=== PATIENT | female | born 1955 | race Caucasian/White ===

== ENCOUNTER 2017-10-28 11:38 | Inpatient (IN) ==
[2017-10-28 12:14] LABS: Basophils % 0.7 %; Eosinophils % 0.7 %; Hemoglobin 11.9 g/dL (11.5-15.4); Immature Granulocytes % 0.7 % (0-4); Lymphocytes # 0.9 K/mcL (0.6-4.6); Lymphocytes % 29.3 %; Mean Corpuscular HGB Conc 32.2 g/dL (31.6-35.5); Mean Corpuscular Hemoglobin 27.7 pg (28.0-33.3); Mean Corpuscular Volume 86.2 fL (83.0-100.0); Mean Platelet Volume 10.7 fL (9.4-12.4); Monocytes # 0.3 K/mcL (0.0-1.3); Monocytes % 9.4 %; Neutrophils # 1.8 K/mcL (1.6-8.9); Platelet Count 216 K/mcL (140-400); Red Blood Count 4.29 M/mcL (3.82-4.97); Segmented Neutrophils % 59.2 %
[2017-10-28 12:29] LABS: BUN/Creatinine Ratio 13 (6-26); Blood Urea Nitrogen 12 mg/dL (8-23); Calcium 9.2 mg/dL (8.6-10.3); Carbon Dioxide 25 mEq/L (23-29); Chloride 101 mEq/L (98-107); Glucose 258 mg/dL (70-105); Osmolality,Calculated 291 (280-300); Potassium 3.9 mEq/L (3.5-5.1); Sodium 136 mEq/L (136-145); eGFR For African Americans > 60 (> 60); eGFR For Non-African Americans > 60 (> 60)
[2017-10-28] MEDS ORDERED: Ipratropium/Albuterol Neb 3 ML IH ONE (12:29)
--- NOTE | 2017-10-28 13:36 | Emergency Department Note ---
Disposition Clinical Impression: Dyspnea Qualifiers: Dyspnea type: dyspnea on exertion Qualified Code(s): R06.09 - Other forms of dyspnea Disposition: Admitted As Inpatient Condition: Good Time of Disposition: 16:02 SOB [facility] - General Chief Complaint: ED Shortness of Breath/Dyspnea Stated Complaint: difficulty in breathing Time Seen by Provider: 10/28/17 11:41 Source: patient Limitations: no limitations Nursing Notes Reviewed: Yes Vital Signs Reviewed: Yes - History of Present Illness 62-year-old female presents emergency Department with concerns of difficulty in breathing. Patient states she becomes significantly dyspneic with minimal exertion. Patient states symptoms have been worsening over the past week. Denies fever, chest pain, syncope however she does become nauseated and lightheaded with her dyspnea. Patient states her symptoms are resolved within minutes of sitting still. Patient has a history of cardiac disease with multiple stents in place. - Related Data Home Medications Medication Instructions Recorded Confirmed Aspirin 11/01/16 Furosemide 11/01/16 Gabapentin 11/01/16 Glimepiride 11/01/16 Lisinopril 11/01/16 Metformin 11/01/16 Naproxen 11/01/16 Potassium 11/01/16 11/01/16 Tylenol 11/01/16 Previous Rx's Medication Instructions Recorded Amoxicillin 875 mg PO BID #14 tablet 11/01/16 Allergies Allergy/AdvReac Type Severity Reaction Status Date / Time No Known Allergies Allergy Verified 10/28/17 09:47 All systems ED: reviewed and negative except as stated. Review of Systems: As Per [facility] Past Medical History - Past Medical History Attestation: Yes The following information was validated with the patient. Source: patient Medical history: Reports: CVA, diabetes, hypertension Psychiatric history: Reports: no psych history - Social History Smoking Status: Never smoker Smokeless Tobacco Status: No Alcohol use: Reports: none Drug use: Reports: none Physical Exam General: Alert and in no acute distress Skin: Warm, dry, intact Head: Normocephalic and atraumatic Neck: Supple, trachea midline and no tenderness Cardiovascular: RRR, no murmur, normal perfusion Respiratory: She has wheezing present on bilateral posterior lung cabezas. She becomes dyspneic with minimal exertion. Musculoskeletal: Normal strength, no tenderness, swelling or deformity GI: Soft, nontender, nondistended. Bowel sounds present Neuro: A&O to person, place, time and situation. No focal deficits noted on exam Psychiatric: cooperative and appropriate mood and affect. - General Limitations: no limitations General appearance: alert, in no apparent distress Course Vital Signs Temperature 98.3 F 10/28/17 11:41 Pulse Rate 93 10/28/17 11:41 Respiratory Rate 14 10/28/17 11:41 Blood Pressure 129/101 10/28/17 11:41 O2 Sat by Pulse Oximetry 98 10/28/17 11:41 Temperature 98.1 F 10/28/17 18:29 Pulse Rate 89 10/28/17 18:29 Respiratory Rate 15 10/28/17 18:29 Blood Pressure 151/88 10/28/17 18:29 O2 Sat by Pulse Oximetry 95 10/28/17 18:29 Oxygen Delivery Oxygen Delivery Nasal Cannula Shortness of Breath/Dyspnea - [facility] Narrative Medical decision making narrative: Patient has elevated lactic acid level and his dyspnea with exertion. Initial troponin negative. CTA of the chest was negative for PE. Patient will be admitted for lactic acidosis and dyspnea. - Medical Records Medical records reviewed: Yes I reviewed the patient's medical records. - Lab Data Lab results reviewed: Yes I reviewed the patient's lab results. Result diagrams: 10/28/17 11:58 10/28/17 11:58 Lab Results 10/28/17 10/28/17 10/28/17 Range/Units 11:58 11:58 11:58 WBC 3.0 L (4.3-11.1) K/mcL RBC 4.29 (3.82-4.97) M/mcL Hgb 11.9 (11.5-15.4) g/dL Hct 37.0 (35.3-44.9) % MCV 86.2 (83.0-100.0) fL MCH 27.7 L (28.0-33.3) pg MCHC 32.2 (31.6-35.5) g/dL RDW 14.0 (11.5-14.5) % Plt Count 216 (140-400) K/mcL MPV 10.7 (9.4-12.4) fL Immature Gran % 0.7 (0-4) % Seg Neutrophils % 59.2 % Lymphocytes % 29.3 % Monocytes % 9.4 % Eosinophils % 0.7 % Basophils % 0.7 % Neutrophils # 1.8 (1.6-8.9) K/mcL Lymphocytes # 0.9 (0.6-4.6) K/mcL Monocytes # 0.3 (0.0-1.3) K/mcL Eosinophils # 0.0 (0.0-0.6) K/mcL Basophils # 0.0 (0.0-0.2) K/mcL D-Dimer (0-500) ng/mLFEU Sodium 136 (136-145) mEq/L Potassium 3.9 (3.5-5.1) mEq/L Chloride 101 (98-107) mEq/L Carbon Dioxide 25 (23-29) mEq/L BUN 12 (8-23) mg/dL Creatinine 0.89 (0.60-1.20) mg/dL Est GFR ( Amer) > 60 (> 60) Est GFR (Non-Af Amer) > 60 (> 60) BUN/Creatinine Ratio 13 (6-26) Glucose 258 H (70-105) mg/dL Calculated Osmolality 291 (280-300) Lactic Acid 3.0 H (0.5-2.2) mmol/L Calcium 9.2 (8.6-10.3) mg/dL Troponin I (< 0.04) ng/mL B-Natriuretic Peptide (Less than 100) pg/mL Urine Color (Yellow) Urine Clarity (Clear) Urine pH (5.0-8.0) pH Units Ur Specific [place] (1.010-1.025) Urine Protein (Neg-Trace) mg/dL Urine Glucose (UA) (Normal) mg/dL Urine Ketones (Negative) mg/dL Urine Blood (Negative) Urine Nitrite (Negative) Urine Bilirubin (Negative) Urine Urobilinogen (Normal) mg/dL Ur Leukocyte Esterase (Negative) Urine Microscopic RBC (0-3) per hpf Urine Microscopic WBC (0-3) per hpf Ur Squamous Epith Cells (None-Few) per lpf Urine Bacteria (None-Few) per hpf Hyaline Casts (None-Few) per lpf Ur Culture Indicated? (NO) 10/28/17 10/28/17 10/28/17 Range/Units 11:58 11:58 11:58 WBC (4.3-11.1) K/mcL RBC (3.82-4.97) M/mcL Hgb (11.5-15.4) g/dL Hct (35.3-44.9) % MCV (83.0-100.0) fL MCH (28.0-33.3) pg MCHC (31.6-35.5) g/dL RDW (11.5-14.5) % Plt Count (140-400) K/mcL MPV (9.4-12.4) fL Immature Gran % (0-4) % Seg Neutrophils % % Lymphocytes % % Monocytes % % Eosinophils % % Basophils % % Neutrophils # (1.6-8.9) K/mcL Lymphocytes # (0.6-4.6) K/mcL Monocytes # (0.0-1.3) K/mcL Eosinophils # (0.0-0.6) K/mcL Basophils # (0.0-0.2) K/mcL D-Dimer 599 H (0-500) ng/mLFEU Sodium (136-145) mEq/L Potassium (3.5-5.1) mEq/L Chloride (98-107) mEq/L Carbon Dioxide (23-29) mEq/L BUN (8-23) mg/dL Creatinine (0.60-1.20) mg/dL Est GFR ( Amer) (> 60) Est GFR (Non-Af Amer) (> 60) BUN/Creatinine Ratio (6-26) Glucose (70-105) mg/dL Calculated Osmolality (280-300) Lactic Acid (0.5-2.2) mmol/L Calcium (8.6-10.3) mg/dL Troponin I < 0.03 (< 0.04) ng/mL B-Natriuretic Peptide 31 (Less than 100) pg/mL Urine Color (Yellow) Urine Clarity (Clear) Urine pH (5.0-8.0) pH Units Ur Specific [place] (1.010-1.025) Urine Protein (Neg-Trace) mg/dL Urine Glucose (UA) (Normal) mg/dL Urine Ketones (Negative) mg/dL Urine Blood (Negative) Urine Nitrite (Negative) Urine Bilirubin (Negative) Urine Urobilinogen (Normal) mg/dL Ur Leukocyte Esterase (Negative) Urine Microscopic RBC (0-3) per hpf Urine Microscopic WBC (0-3) per hpf Ur Squamous Epith Cells (None-Few) per lpf Urine Bacteria (None-Few) per hpf Hyaline Casts (None-Few) per lpf Ur Culture Indicated? (NO) 10/28/17 10/28/17 10/28/17 Range/Units 13:38 16:17 19:42 WBC (4.3-11.1) K/mcL RBC (3.82-4.97) M/mcL Hgb (11.5-15.4) g/dL Hct (35.3-44.9) % MCV (83.0-100.0) fL MCH (28.0-33.3) pg MCHC (31.6-35.5) g/dL RDW (11.5-14.5) % Plt Count (140-400) K/mcL MPV (9.4-12.4) fL Immature Gran % (0-4) % Seg Neutrophils % % Lymphocytes % % Monocytes % % Eosinophils % % Basophils % % Neutrophils # (1.6-8.9) K/mcL Lymphocytes # (0.6-4.6) K/mcL Monocytes # (0.0-1.3) K/mcL Eosinophils # (0.0-0.6) K/mcL Basophils # (0.0-0.2) K/mcL D-Dimer (0-500) ng/mLFEU Sodium (136-145) mEq/L Potassium (3.5-5.1) mEq/L Chloride (98-107) mEq/L Carbon Dioxide (23-29) mEq/L BUN (8-23) mg/dL Creatinine (0.60-1.20) mg/dL Est GFR ( Amer) (> 60) Est GFR (Non-Af Amer) (> 60) BUN/Creatinine Ratio (6-26) Glucose (70-105) mg/dL Calculated Osmolality (280-300) Lactic Acid 3.1 H 3.3 H (0.5-2.2) mmol/L Calcium (8.6-10.3) mg/dL Troponin I (< 0.04) ng/mL B-Natriuretic Peptide (Less than 100) pg/mL Urine Color Yellow (Yellow) Urine Clarity Clear (Clear) Urine pH 6.0 (5.0-8.0) pH Units Ur Specific [place] > 1.030 H (1.010-1.025) Urine Protein Trace (Neg-Trace) mg/dL Urine Glucose (UA) >=1000 H (Normal) mg/dL Urine Ketones 40 H (Negative) mg/dL Urine Blood Negative (Negative) Urine Nitrite Negative (Negative) Urine Bilirubin Negative (Negative) Urine Urobilinogen Normal (Normal) mg/dL Ur Leukocyte Esterase Negative (Negative) Urine Microscopic RBC 0-3 (0-3) per hpf Urine Microscopic WBC 0-3 (0-3) per hpf Ur Squamous Epith Cells Many H (None-Few) per lpf Urine Bacteria None Seen (None-Few) per hpf Hyaline Casts None Seen (None-Few) per lpf Ur Culture Indicated? NO (NO) - Radiology Data Radiology results reviewed: Yes I reviewed the patient's radiology results. - EKG Data EKG attestation: Yes I reviewed and interpreted this EKG. EKG results narrative: ECG - interpreted by ED physician. Rate 87, normal sinus rhythm, no STEMI, [place], QT intervals, and QRS within normal limits
[2017-10-28] MEDS ORDERED: 0.9 % Sodium Chloride 1,000 ML IVC ONE ×3 (14:41→21:37)
[2017-10-28 16:32] LABS: Bilirubin,Urine Negative (Negative); Blood,Urine Negative (Negative); Clarity,Urine Clear (Clear); Color,Urine Yellow (Yellow); Glucose,Urine (UA) >=1000 mg/dL (Normal); Ketones,Urine 40 mg/dL (Negative); Leukocyte Esterase,Urine Negative (Negative); Nitrite,Urine Negative (Negative); Protein,Urine Trace mg/dL (Neg-Trace); Specific Gravity,Urine > 1.030 (1.010-1.025); Urobilinogen,Urine Normal (Normal)
[2017-10-28 16:33] LABS: Bacteria,Urine None Seen per hpf (None-Few); Hyaline Casts,Urine None Seen per lpf (None-Few); RBC,Urine 0-3 per hpf (0-3); Squamous Epithelial Cell,Urine Many per lpf (None-Few); WBC,Urine 0-3 per hpf (0-3)
--- NOTE | 2017-10-28 19:17 | Electrocardiograph Report ---
[address] [place], [place] [address] Test Date: 2017-10-28 Pat Name: Marisela Small Department: 104 Room: 3A42 Gender: F [employer]: : 1955 Requested By: Sampson Ortiz Order Number: [id number] Reading MD: Hui Abrams Measurements Intervals [place] Rate: 87 P: 61 WA: 185 QRS: -6 QRSD: 90 T: 19 QT: 371 QTc: 416 Interpretive Statements SINUS RHYTHM LOW QRS VOLTAGE IN PRECORDIAL LEADS Electronically Signed On 10-28-2017 19:16:37 EST by Hui Abrams
[2017-10-28] MEDS ORDERED: Naloxone 0.4 MG/ML INJ IVP PRN (20:04)
[2017-10-28] MEDS ORDERED: Acetaminophen 325 MG TABLET PO PRN (20:04)
[2017-10-28] MEDS: Azithromycin 500 MG in D5% in Water 250 ML IVPB SCH (22:18)
[2017-10-28] MEDS: Ipratropium/Albuterol Neb 3 ML IH SCH (22:19)
[2017-10-28] MEDS: *HR* HYDROcodone/Acet 5/325 mg TABLET PO PRN (22:20)
--- NOTE | 2017-10-28 22:24 | Internal Med History&Physical ---
Date of Encounter: 10/28/17 Time of Encounter: 18:00 Assessment and Plan (1) Bronchitis Current visit: Yes Status: Acute Acute bronchitis. Pt. states current sx are similar to her bronchitis dx one year ago. Pt. reports cough with sputum production, shortness of breath, wheezing, and dyspnea with minimal exertion which has worsened since Friday. Pt. denies hx of COPD or CHF. Also denies smoking hx. Blood cultures x2. Sputum culture. Supplemental O2 w/titration and SPO2 monitoring. Solumedrol 40 mg IVP Q8. DuoNebs Q6 scheduled. IVPB azithromycin 500 mg daily for infection coverage. Will adjust abx coverage based on culture results. Pt. and f/u labs to be monitored. Pt. discussed w/Dr. Gallegos who is in agreement w/plan of care. Pt. is high risk for further morbidity and infection based on current bronchitis , sepsis criteria, current SOB/dyspnea, and hx. Inpatient. (2) Sepsis Current visit: Yes Status: Acute Acute sepsis criteria w/WBC of 3.0, HR of 114, and suspected bronchitis dx. Initial lactic acid 3.0 on admission. Pt. given 0.9 NS bolus in ED to be followed by two 1L boluses, then 100 mL/HR. Blood cultures x2. Sputum culture. Timed lactic acid ordered. IVPB Azithromycin 500 mg daily for infection coverage. Will adjust abx coverage based on culture results. Pt. to be monitored closely for signs of increasing infection, respiratory, and/or cardiac distress. Qualifiers: Sepsis type: sepsis due to unspecified organism Qualified Code(s): A41.9 - Sepsis, unspecified organism (3) Dyspnea Current visit: Yes Status: Acute Acute SOB and dyspnea r/t current bronchitis. Supplemental O2 w/titration and SpO2 monitoring. DuoNebs Q6 scheduled. Solumedrol 40 mg IVP Q8. Can consider titrating steroid as sx resolve. Qualifiers: Dyspnea type: dyspnea on exertion Qualified Code(s): R06.09 - Other forms of dyspnea (4) Diarrhea Current visit: Yes Status: Acute Acute diarrhea for the past three days. Will consider and r/o infectious type d/ t previous abx use. C. difficile panel ordered. Monitor I&O. Qualifiers: Diarrhea type: unspecified type Qualified Code(s): R19.7 - Diarrhea, unspecified (5) Weakness Current visit: Yes Status: Acute Acute weakness r/t current SOB, dyspnea, and cough. Falls/safety precautions, up with assist, and bed rest w/bedside commode w/assist only. (6) Diabetes Current visit: Yes Status: Chronic Hx of chronic diabetes controlled by insulin and oral medications. Will hold oral medications and administer low-dose correction insulin sliding scale with hypoglycemic protocol. BG checks before meals and at bedtime. A1c in a.m. labs. Qualifiers: Diabetes mellitus type: type 2 Diabetes mellitus complication status: with unspecified complications Diabetes mellitus intermediate teacher insulin use: unspecified intermediate teacher insulin use status Qualified Code(s): E11.8 - Type 2 diabetes mellitus with unspecified complications (7) HTN (hypertension) Current visit: Yes Status: Chronic Hx of chronic HTN. Monitor patient vital signs. Continue patient's lisinopril. Qualifiers: Hypertension type: essential hypertension Qualified Code(s): I10 - Essential (primary) hypertension (8) HLD (hyperlipidemia) Current visit: Yes Status: Chronic Hx of chronic HLD. Lipid panel in a.m. labs. Pt. does not currently take statin. We will add Lipitor if lipid panel warrants. Qualifiers: Hyperlipidemia type: pure hypercholesterolemia Qualified Code(s): E78.00 - Pure hypercholesterolemia, unspecified; E78.0 - Pure hypercholesterolemia (9) DVT prophylaxis Current visit: Yes Status: Acute Heparin 5,000 units SQ Q8 for DVT prophylaxis. Monitor pt. for signs of bleeding. Internal Medicine - H&P: HPI Chief complaint: SOB/Dyspnea Admitted From: Emergency Dept Plans for Post Hospital Care: Home History of present illness: Ms. Small is a 62 year old female with medical hx of CVA in 1999, diabetes controlled by insulin, HTN and HLD presents for eating chief complaint of shortness of breath and dyspnea for the past week. Patient states she becomes significantly dyspneic with minimal exertion which is worsened over the past week. Reports she had bronchitis approximately one year ago and states symptoms are very similar with SOB, weakness, diarrhea, wheezing, and lightheadedness. Patient denies recent illness, fever, chills, vomiting, chest pain, palpitations, headache, changes in vision, unusual bleeding, abdominal pain, constipation, back pain, neck pain, numbness, tingling, pre-syncope, or syncope. Past Med Surg Social Fam HX - Past Medical History Source: patient, old records reviewed Medical history: CVA (In 1999 w/residual vision changes), diabetes (Controlled w /insulin), hypertension Psychiatric history: no psych history - Past Surgical History Surgical History: cholecystectomy - Social History Smoking Status: Never smoker Smokeless Tobacco Status: No Alcohol use: none Drug use: none Occupational status: employed Current living situation: Home Activity Level: Independent ambulation Recent Out of Country Travel Within the Last 8 Weeks: No Exposure or Possible Exposure to Illness During Travel: No - Family History Father Race: Family Member Ethnicity: Non- Living Status: Age at : 82 Cause of : CAD Hx Family Cardiac Disorders: Yes (CAD) Mother Race: Family Member Ethnicity: Non- Living Status: Age at : 72 Cause of : COPD Hx Family Respiratory Disorders: Yes (COPD) Brother Race: Family Member Ethnicity: Non- Living Status: Still Living Hx Family Medical Disorders: No Sister Race: Family Member Ethnicity: Non- Living Status: Age at : 50 Cause of : Metastatic cancer Hx Family Cancer: Yes (Metastatic) Daughter Race: Family Member Ethnicity: Non- Living Status: Age at : 42 Cause of : Cancer Hx Family Cancer: Yes Internal Medicine - H&P: Meds Amoxicillin 875 mg PO BID #14 tablet 11/01/16 [Rx] Aspirin 11/01/16 [History] Furosemide 11/01/16 [History] Gabapentin 11/01/16 [History] Glimepiride 11/01/16 [History] Lisinopril 11/01/16 [History] Metformin 11/01/16 [History] Naproxen 11/01/16 [History] Potassium 11/01/16 [History] Tylenol 11/01/16 [History] 3 Allergy/AdvReac Type Severity Reaction Status Date / Time No Known Allergies Allergy Verified 10/28/17 09:47 All Systems PM: A 10-system review of systems was performed and is negative for pertinent findings except as documented above in the HPI. - Constitutional Constitutional: as per HPI, weakness, no chills, no fever(s), no night sweats - EENT Eyes: no change in vision, no discharge, no pain, no photophobia Ears: no ear discharge, no ear pain, no tinnitus Nose, mouth and throat: no dysphagia, no nasal discharge, no neck pain, no sore throat - Breasts Breasts: as per HPI - Cardiovascular Cardiovascular ROS IM: as per HPI, dyspnea, dyspnea on exertion, lightheadedness , no chest pain, no diaphoresis, no palpitations, no syncope - Respiratory Respiratory: as per HPI, cough, dyspnea, dyspnea on exertion, wheezing, no excessive phlegm production - Gastrointestinal Gastrointestinal: as per HPI, diarrhea, nausea, no abdominal pain, no hematemesis, no hematochezia, no melena, no vomiting - Genitourinary Genitourinary: no change in urinary stream, no dysuria, no flank pain, no hematuria Menstruation: as per HPI - Musculoskeletal Musculoskeletal ROS IM: no numbness, no tingling - Integumentary Integumentary IM: no rash, no unusual bruising - Neurological Neurological ROS: as per HPI, dizziness, no confusion, no convulsions, no focal weakness, no numbness, no tingling, no tremor(s) - Psychiatric Psychiatric: as per HPI - Endocrine Endocrine IM: as per HPI - Hematologic/Lymphatic Hematologic/Lymphatic: no easy bruising - Allergic/Immunologic Allergic/Immunologic: as per HPI - Constitutional Vitals: Temp Pulse Resp BP Pulse Ox 98.1 F 89 15 151/88 95 10/28/17 18:29 10/28/17 18:29 10/28/17 18:29 10/28/17 18:29 10/28/17 18:29 General appearance: Present: cooperative, mild distress (Respiratory), A&O X 3, morbidly obese, pleasant, answers questions appropriately - Head Head exam: Present: atraumatic, normocephalic - Eye Eye exam: Present: PERRL, conjuntiva pink, sclera anicteric Pupils: Present: PERRL - ENT ENT exam: Present: normal exam - Neck Neck exam general surgery: Present: normal inspection, supple, trachea midline. Absent: lymphadenopathy - Respiratory Respiratory exam: Present: accessory muscle use, wheezes - Cardiovascular Cardiovascular exam: Present: +S1, +S2, tachycardia. Absent: diastolic murmur, gallop, rubs, systolic murmur - GI/Abdominal GI/Abdominal exam: Present: normal bowel sounds, soft, no peritoneal signs. Absent: distended, tenderness - Rectal Rectal exam: Present: deferred - Additional comments: exam deferred. - Extremities Exam Extremities exam: Present: warm, radial pulses palpable and symmetrical. Absent : calf tenderness, cyanotic, pedal edema - Back Exam Back exam: Present: normal inspection - Neurological Exam Neurological exam: Present: CN II-XII intact, oriented X3, no focal deficits. Absent: pronater drift, facial droop, speech deficit - Psychiatric Psychiatric exam: Present: anxious - Skin Skin exam: Present: dry, intact Internal Med - H&P Results - Labs CBC & Chem 7: 10/28/17 11:58 10/28/17 11:58 - EKG Data EKG shows normal: sinus rhythm - EKG Data Prior EKG available for review: no EKG comments: 10/28/17 22:30 EKG dated 10/28/17 sinus rhythm with low QRS voltage in precordial leads. - Diagnostic Studies Chest x-ray Additional comments: Impressions Chest X-Ray 10/28/17 11:49 IMPRESSION: Calcific atherosclerotic disease aorta. No acute disease. D/ / Lawrence Wright / Lawrence Wright Interpreting Provider: Lawrence Wright Other Images Additional comments: Impressions Chest CTA 10/28/17 14:33 IMPRESSION: Limited exam due to timing of the bolus and artifact No large central pulmonary artery filling defect is noted Minimal pleural fluid on the right with minimal bilateral dependent atelectasis. Hiatal hernia D/ / Rosas Hamlin / Rosas Hamlin Interpreting Provider: Rosas Hamlin
[2017-10-28] MEDS ORDERED: Dextrose Gel 15 GM/37.5 ML TUBE PO PRN ×2 (22:39)
[2017-10-28] MEDS ORDERED: *HR* Dextrose 50 % in Water (Syg) 50 ML SYRINGE IVP PRN (22:39)
[2017-10-28] MEDS ORDERED: D5% in Water 1,000 ML IVC PRN (22:39)
--- NOTE | 2017-10-28 23:05 | Event Note ---
Date of Encounter: 10/28/17 Time of Encounter: 23:00 Discussed with CURLY and agree with assessment and plan Will continue to treat acute bronchitis with IV azithromycin in addition to DuoNeb and Solu-Medrol. Sputum culture pending
[2017-10-29] MEDS: *HR* Heparin 5,000 UNIT/ML VIAL SQ SCH ×3 (00:50→15:39)
[2017-10-29] MEDS: MethylPREDNISolone 40 MG/ML VIAL IVP SCH ×3 (00:50→15:39)
[2017-10-29] MEDS ORDERED: Vancomycin 1,750 MG in D5% in Water 500 ML IVPB SCH (01:00)
[2017-10-29] MEDS ORDERED: Vancomycin 1,750 MG in D5% in Water 500 ML IVPB ONE (01:15)
[2017-10-29] MEDS ORDERED: Vancomycin 1,750 MG in D5% in Water 250 ML IVPB SCH (01:30)
[2017-10-29] MEDS: *HR* HYDROcodone/Acet 5/325 mg TABLET PO PRN (03:58)
[2017-10-29] MEDS: Ipratropium/Albuterol Neb 3 ML IH SCH ×4 (04:19→21:52)
[2017-10-29 06:03] LABS: Basophils % 0.2 %; Hematocrit 33.2 % (35.3-44.9); Hemoglobin 10.8 g/dL (11.5-15.4); Lymphocytes # 0.8 K/mcL (0.6-4.6); Lymphocytes % 19.8 %; Mean Corpuscular HGB Conc 32.5 g/dL (31.6-35.5); Mean Corpuscular Hemoglobin 27.6 pg (28.0-33.3); Mean Corpuscular Volume 84.7 fL (83.0-100.0); Monocytes # 0.2 K/mcL (0.0-1.3); Monocytes % 4.5 %; Neutrophils # 3.1 K/mcL (1.6-8.9); Platelet Count 224 K/mcL (140-400); Red Blood Count 3.92 M/mcL (3.82-4.97); Red Cell Distribution Width 14.1 % (11.5-14.5); Segmented Neutrophils % 74.5 %
[2017-10-29 06:20] LABS: Alanine Aminotransferase 28 Units/L (7-52); Albumin/Globulin Ratio 1.6 (1.1-2.2); Alkaline Phosphatase 76 Units/L (34-104); Aspartate Amino Transferase 18 Units/L (13-39); BUN/Creatinine Ratio 14 (6-26); Bilirubin,Total 0.3 mg/dL (0.3-1.0); Blood Urea Nitrogen 11 mg/dL (8-23); Calcium 8.8 mg/dL (8.6-10.3); Carbon Dioxide 21 mEq/L (23-29); Chloride 101 mEq/L (98-107); Chol/HDL Ratio 2.6 (0-4.9); Cholesterol 83 mg/dL (< 200); Globulin 2.5 g/dL (2.4-3.5); Glucose 382 mg/dL (70-105); HDL Cholesterol 32 mg/dL (40-59); LDL Cholesterol,Calculated 28 mg/dL (0-99); Magnesium 1.6 mg/dL (1.6-2.6); Osmolality,Calculated 291 (280-300); Sodium 133 mEq/L (136-145); Total Protein 6.5 g/dL (6.4-8.9); Triglycerides 114 mg/dL (< 150); eGFR For African Americans > 60 (> 60); eGFR For Non-African Americans > 60 (> 60)
[2017-10-29] MEDS: 0.9 % Sodium Chloride 1,000 ML IVC SCH ×2 (07:00→22:18)
[2017-10-29] MEDS ORDERED: Aminoglycoside Consult 1 EACH MC ONE (08:30)
[2017-10-29] MEDS: Insulin LISPRO 300 UNITS/3 ML VIAL SQ SCH ×3 (08:58→16:47)
--- NOTE | 2017-10-29 09:53 | Internal Med Progress Note ---
<Bennett Ochoa - Last Filed: 10/29/17 14:09> Date of Encounter: 10/29/17 Time of Encounter: 09:49 - Assessment and plan (1) Bronchitis Current Visit: Yes Status: Acute Assessment and plan: Awaiting blood and sputum cultures - Supplemental O2 as needed with monitoring - Solumedrol 40 mg IVP Q8 - Dunebs Q6 scheduled - IV Azithromycin 500 mg QD day 2. Will adjust coverage based on cultures. May qualify her for oxygen prior to discharge for undiagnosed COPD (2) Sepsis Current Visit: Yes Status: Acute Assessment and plan: Acute sepsis criteria w/WBC of 3.0, HR of 114, and suspected bronchitis dx. Initial lactic acid 3.5 on admission. This AM, WBC: 4.2 Lactic 2.5 - IV fluids -Blood and sputum cultures pending -IV azithromycin 500mg Qualifiers: Sepsis type: sepsis due to unspecified organism Qualified Code(s): A41.9 - Sepsis, unspecified organism (3) Acute hypoxemic respiratory failure Current Visit: Yes Status: Acute Assessment and plan: Likely secondary to acute bronchitis. Supplemental O2 w/titration and SpO2 monitoring. DuoNebs Q6 scheduled. Solumedrol 40 mg IVP Q8 (4) Diarrhea Current Visit: Yes Status: Acute Assessment and plan: Acute diarrhea past 4 days. Patient states that she was up all night with diarrhea. - C. diff panel ordered - Monitor I&O - IV fluids Qualifiers: Diarrhea type: unspecified type Qualified Code(s): R19.7 - Diarrhea, unspecified (5) Weakness Current Visit: Yes Status: Acute Assessment and plan: Falls/safety precautions, up with assist, and bed rest w/bedside commode w/ assist only. (6) Diabetes Current Visit: Yes Status: Chronic Assessment and plan: Sliding scale with hypoglycemic protocol. BG checks before meals and at bedtime. A1c in a.m. labs. 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 Monitor. Qualifiers: Hypertension type: essential hypertension Qualified Code(s): I10 - Essential (primary) hypertension (8) HLD (hyperlipidemia) Current Visit: Yes Status: Chronic Assessment and plan: Hx of hyperlipidemia. Not on statin. Consider Niacin and aspirin if tolerated. Lipid panel shows: - Cholesterol: 83 - LDL: 28 - VLDL: 23 - HDL: 32 Qualifiers: Hyperlipidemia type: pure hypercholesterolemia Qualified Code(s): E78.00 - Pure hypercholesterolemia, unspecified; E78.0 - Pure hypercholesterolemia (9) DVT prophylaxis Current Visit: Yes Status: Acute Assessment and plan: SubQ Heparin - Subjective Interval history: Patient seen and examined at bedside. She is sitting up in bed. States that she is feeling "lousy" because she couldn't sleep last night. She states that she was unable to sleep last night due to a combination of being attached to the IV and also having to get up frequently to use the bathroom due to her ongoing diarrhea. She does however states, that her dyspnea, and respiratory symptoms are much improved since admission and that she is having an easier time breathing than she did previously. - Constitutional Vitals: Temp Pulse Resp BP Pulse Ox 98.2 F 63 18 155/79 98 10/29/17 07:17 10/29/17 07:17 10/29/17 07:17 10/29/17 07:17 10/29/17 07:17 General appearance: Present: cooperative, A&O X 3, morbidly obese, answers questions appropriately - Head Head exam: Present: normal inspection - Neck Neck exam general surgery: Present: normal inspection - Respiratory Respiratory exam: Present: wheezes - Cardiovascular Cardiovascular exam: Present: RRR - GI/Abdominal GI/Abdominal exam: Present: soft. Absent: distended, firm, guarding, rigid, tenderness - Skin Skin exam: Present: dry, pallor, warm Internal Medicine: Result - Labs CBC & Chem 7: 10/29/17 04:52 10/29/17 04:52 Labs: Short CBC 10/29/17 Range/Units 04:52 WBC 4.2 L (4.3-11.1) K/mcL Hgb 10.8 L (11.5-15.4) g/dL Hct 33.2 L (35.3-44.9) % Plt Count 224 (140-400) K/mcL Neutrophils # 3.1 (1.6-8.9) K/mcL BMP 10/29/17 04:52 Sodium 133 L Potassium 4.0 Chloride 101 Carbon Dioxide 21 L BUN 11 Creatinine 0.79 Glucose 382 H Calcium 8.8 Liver Function 10/29/17 Range/Units 04:52 Total Bilirubin 0.3 (0.3-1.0) mg/dL AST 18 (13-39) Units/L ALT 28 (7-52) Units/L Alkaline Phosphatase 76 (34-104) Units/L Albumin 4.0 (3.5-5.7) g/dL - ABG Interpretation ABG results: PT/INR, D-dimer D-Dimer 599 ng/mLFEU (0-500) H 10/28/17 11:58 Consult Discharge Plan - Plan Referrals: Vinnie,Chelsie Coronado CNP [Primary Care Provider] - <Garcia Knapp H - Last Filed: 10/29/17 15:02> Date of Encounter: 10/29/17 - Constitutional Vitals: Temp Pulse Resp BP Pulse Ox 98.1 F 110 18 152/82 96 10/29/17 11:32 10/29/17 11:32 10/29/17 11:32 10/29/17 11:32 10/29/17 11:32 Internal Medicine: Result - Labs CBC & Chem 7: 10/29/17 04:52 10/29/17 04:52 Labs: Short CBC 10/29/17 Range/Units 04:52 WBC 4.2 L (4.3-11.1) K/mcL Hgb 10.8 L (11.5-15.4) g/dL Hct 33.2 L (35.3-44.9) % Plt Count 224 (140-400) K/mcL Neutrophils # 3.1 (1.6-8.9) K/mcL BMP 10/29/17 04:52 Sodium 133 L Potassium 4.0 Chloride 101 Carbon Dioxide 21 L BUN 11 Creatinine 0.79 Glucose 382 H Calcium 8.8 Liver Function 10/29/17 Range/Units 04:52 Total Bilirubin 0.3 (0.3-1.0) mg/dL AST 18 (13-39) Units/L ALT 28 (7-52) Units/L Alkaline Phosphatase 76 (34-104) Units/L Albumin 4.0 (3.5-5.7) g/dL - ABG Interpretation ABG results: PT/INR, D-dimer D-Dimer 599 ng/mLFEU (0-500) H 10/28/17 11:58 - Attending Attestation Continue azithromycin, discontinue vancomycin and Zosyn Obtain stool sample for GI panel if she continues to have diarrhea I examined this patient and my medical decision-making was reviewed with the Resident Physician. I agree with the documented findings, disposition and treatment plan as described except to the extent set forth below.
[2017-10-29] MEDS ORDERED: Pregabalin 75 MG CAPSULE PO PRN (11:58)
[2017-10-29] MEDS ORDERED: Vancomycin 1,250 MG in D5% in Water 250 ML IVPB SCH (13:00)
[2017-10-29] MEDS ORDERED: Insulin DETEMIR 100 UNIT/ML X5UNITS SQ ONE (15:06)
[2017-10-29] MEDS ORDERED: Insulin LISPRO 300 UNITS/3 ML VIAL SQ SCH (21:00)
[2017-10-29] MEDS ORDERED: Insulin DETEMIR 100 UNIT/ML X5UNITS SQ SCH (21:00)
[2017-10-29] MEDS: Insulin DETEMIR 100 UNIT/ML X5UNITS SQ SCH (22:15)
[2017-10-29] MEDS: Azithromycin 500 MG in D5% in Water 250 ML IVPB SCH (22:17)
[2017-10-30] MEDS: *HR* Heparin 5,000 UNIT/ML VIAL SQ SCH ×3 (00:27→19:06)
[2017-10-30] MEDS: MethylPREDNISolone 40 MG/ML VIAL IVP SCH ×3 (00:31→19:07)
[2017-10-30] MEDS: Ipratropium/Albuterol Neb 3 ML IH SCH ×4 (03:33→22:07)
[2017-10-30 05:20] LABS: Hematocrit 33.7 % (35.3-44.9); Hemoglobin 10.6 g/dL (11.5-15.4); Immature Granulocytes % 0.4 % (0-4); Lymphocytes # 0.5 K/mcL (0.6-4.6); Lymphocytes % 7.8 %; Mean Corpuscular HGB Conc 31.5 g/dL (31.6-35.5); Mean Corpuscular Hemoglobin 27.2 pg (28.0-33.3); Mean Corpuscular Volume 86.6 fL (83.0-100.0); Mean Platelet Volume 10.7 fL (9.4-12.4); Monocytes # 0.4 K/mcL (0.0-1.3); Monocytes % 5.2 %; Platelet Count 254 K/mcL (140-400); Red Blood Count 3.89 M/mcL (3.82-4.97); Red Cell Distribution Width 14.2 % (11.5-14.5); Segmented Neutrophils % 86.6 %
[2017-10-30 05:59] LABS: BUN/Creatinine Ratio 18 (6-26); Blood Urea Nitrogen 13 mg/dL (8-23); Calcium 9.5 mg/dL (8.6-10.3); Carbon Dioxide 19 mEq/L (23-29); Chloride 105 mEq/L (98-107); Glucose 325 mg/dL (70-105); Osmolality,Calculated 295 (280-300); Potassium 4.4 mEq/L (3.5-5.1); Sodium 136 mEq/L (136-145); eGFR For African Americans > 60 (> 60); eGFR For Non-African Americans > 60 (> 60)
[2017-10-30] MEDS ORDERED: Insulin LISPRO 300 UNITS/3 ML VIAL SQ SCH (07:40)
[2017-10-30] MEDS: Insulin LISPRO 300 UNITS/3 ML VIAL SQ SCH ×2 (08:11→19:05)
[2017-10-30] MEDS: Aspirin Enteric Coated 81 MG Tablet PO SCH (08:13)
--- NOTE | 2017-10-30 09:31 | Internal Med Progress Note ---
<Bennett Ochoa - Last Filed: 10/30/17 09:28> Date of Encounter: 10/30/17 Time of Encounter: 09:29 - Assessment and plan (1) Bronchitis Current Visit: Yes Status: Acute Assessment and plan: Blood cultures negative so far, awaiting sputum culture - Supplemental O2 as needed with monitoring - Taper Solumedrol to 40 mg IVP Q12 - Dunebs Q6 scheduled - IV Azithromycin 500 mg QD day 3. Will adjust coverage based on cultures. May qualify her for oxygen prior to discharge for undiagnosed COPD (2) Sepsis Current Visit: Yes Status: Acute Assessment and plan: No longer has any SIRS criteria this morning - IV fluids discontinued as she is slightly edematous -Blood cultures negative so far -IV azithromycin 500mg as above Qualifiers: Sepsis type: sepsis due to unspecified organism Qualified Code(s): A41.9 - Sepsis, unspecified organism (3) Acute hypoxemic respiratory failure Current Visit: Yes Status: Acute Assessment and plan: Likely secondary to acute bronchitis. Supplemental O2 w/titration and SpO2 monitoring. DuoNebs Q6 scheduled. Solumedrol 40 mg IVP Q12 (4) Diarrhea Current Visit: Yes Status: Resolved Assessment and plan: Stool culture rejected as it was liquid yesterday No longer having diarrhea today Qualifiers: Diarrhea type: unspecified type Qualified Code(s): R19.7 - Diarrhea, unspecified (5) Weakness Current Visit: Yes Status: Acute Assessment and plan: Falls/safety precautions, up with assist, and bed rest w/bedside commode w/ assist only. (6) Diabetes Current Visit: Yes Status: Chronic Assessment and plan: Sliding scale with hypoglycemic protocol. 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 Blood pressures slightly elevated IV Hydralazine PRN added Qualifiers: Hypertension type: essential hypertension Qualified Code(s): I10 - Essential (primary) hypertension (8) HLD (hyperlipidemia) Current Visit: Yes Status: Chronic Assessment and plan: Hx of hyperlipidemia. Not on statin but cholesterol panel WNL Qualifiers: Hyperlipidemia type: pure hypercholesterolemia Qualified Code(s): E78.00 - Pure hypercholesterolemia, unspecified; E78.0 - Pure hypercholesterolemia (9) DVT prophylaxis Current Visit: Yes Status: Acute Assessment and plan: SubQ Heparin - Subjective Interval history: Patient seen and examined at bedside. She states her breathing is somewhat better this morning but she still has a cough. Her sore throat is better after lozenges yesterday. Has not had any bowel movements since yesterday and denies any abdominal pain. No fever, chest pain, nausea, vomiting. - Constitutional Vitals: Temp Pulse Resp BP Pulse Ox 97.9 F 67 16 161/98 98 10/30/17 06:33 10/30/17 06:33 10/30/17 09:17 10/30/17 06:33 10/30/17 09:17 General appearance: Present: cooperative, A&O X 3, morbidly obese, answers questions appropriately - Head Head exam: Present: atraumatic, normocephalic - Eye Eye exam: Present: PERRL, conjuntiva pink, sclera anicteric - Neck Neck exam general surgery: Present: supple, trachea midline. Absent: lymphadenopathy - Respiratory Respiratory exam: Present: wheezes (mild). Absent: accessory muscle use, rales , rhonchi - Cardiovascular Cardiovascular exam: Present: RRR, +S1, +S2. Absent: diastolic murmur, gallop, rubs, systolic murmur - GI/Abdominal GI/Abdominal exam: Present: normal bowel sounds, soft, no peritoneal signs. Absent: distended, tenderness - Extremities Exam Extremities exam: Present: pedal edema, warm, radial pulses palpable and symmetrical. Absent: calf tenderness, cyanotic - Neurological Exam Neurological exam: Present: alert, no focal deficits. Absent: facial droop, speech deficit - Skin Skin exam: Present: dry, intact Internal Medicine: Result - Labs CBC & Chem 7: 10/30/17 05:03 10/30/17 05:03 Labs: Short CBC 10/30/17 Range/Units 05:03 WBC 6.9 D (4.3-11.1) K/mcL Hgb 10.6 L (11.5-15.4) g/dL Hct 33.7 L (35.3-44.9) % Plt Count 254 (140-400) K/mcL Neutrophils # 6.0 (1.6-8.9) K/mcL BMP 10/30/17 05:03 Sodium 136 Potassium 4.4 Chloride 105 Carbon Dioxide 19 L BUN 13 Creatinine 0.74 Glucose 325 H Calcium 9.5 - ABG Interpretation ABG results: PT/INR, D-dimer D-Dimer 599 ng/mLFEU (0-500) H 10/28/17 11:58 Consult Discharge Plan - Plan Referrals: Chelsie Birmingham CNP [Primary Care Provider] - <Garcia Knapp H - Last Filed: 10/30/17 11:43> Date of Encounter: 10/30/17 - Constitutional Vitals: Temp Pulse Resp BP Pulse Ox 97.9 F 67 16 161/98 98 10/30/17 06:33 10/30/17 06:33 10/30/17 09:17 10/30/17 06:33 10/30/17 09:17 Internal Medicine: Result - Labs CBC & Chem 7: 10/30/17 05:03 10/30/17 05:03 Labs: Short CBC 10/30/17 Range/Units 05:03 WBC 6.9 D (4.3-11.1) K/mcL Hgb 10.6 L (11.5-15.4) g/dL Hct 33.7 L (35.3-44.9) % Plt Count 254 (140-400) K/mcL Neutrophils # 6.0 (1.6-8.9) K/mcL BMP 10/30/17 05:03 Sodium 136 Potassium 4.4 Chloride 105 Carbon Dioxide 19 L BUN 13 Creatinine 0.74 Glucose 325 H Calcium 9.5 - ABG Interpretation ABG results: PT/INR, D-dimer D-Dimer 599 ng/mLFEU (0-500) H 10/28/17 11:58 - Attending Attestation Acute hypoxic respiratory failure likely secondary to acute COPD exacerbation/ never diagnosed due to sepsis from possible acute bacterial bronchitis Complete doses of azithromycin, continue Solu-Medrol duonebs and oxygen therapy I examined this patient and my medical decision-making was reviewed with the Resident Physician. I agree with the documented findings, disposition and treatment plan as described except to the extent set forth below.
[2017-10-30] MEDS: Insulin DETEMIR 100 UNIT/ML X5UNITS SQ SCH ×2 (18:58→21:44)
[2017-10-30] MEDS: *HR* HYDROcodone/Acet 5/325 mg TABLET PO PRN (19:12)
[2017-10-30] MEDS: Pregabalin 75 MG CAPSULE PO SCH (21:43)
[2017-10-30] MEDS: Azithromycin 500 MG in D5% in Water 250 ML IVPB SCH (21:44)
[2017-10-31] MEDS: *HR* Heparin 5,000 UNIT/ML VIAL SQ SCH ×2 (01:14→09:00)
[2017-10-31 04:12] LABS: Hematocrit 32.7 % (35.3-44.9); Hemoglobin 10.6 g/dL (11.5-15.4); Immature Granulocytes % 0.6 % (0-4); Lymphocytes # 0.8 K/mcL (0.6-4.6); Lymphocytes % 12.1 %; Mean Corpuscular HGB Conc 32.4 g/dL (31.6-35.5); Mean Corpuscular Hemoglobin 27.5 pg (28.0-33.3); Mean Corpuscular Volume 84.9 fL (83.0-100.0); Monocytes # 0.4 K/mcL (0.0-1.3); Monocytes % 6.4 %; Neutrophils # 5.6 K/mcL (1.6-8.9); Platelet Count 243 K/mcL (140-400); Red Blood Count 3.85 M/mcL (3.82-4.97); Red Cell Distribution Width 14.1 % (11.5-14.5); Segmented Neutrophils % 80.9 %
[2017-10-31] MEDS: Ipratropium/Albuterol Neb 3 ML IH SCH ×2 (04:14→10:43)
[2017-10-31 04:43] LABS: BUN/Creatinine Ratio 24 (6-26); Blood Urea Nitrogen 17 mg/dL (8-23); Calcium 9.5 mg/dL (8.6-10.3); Carbon Dioxide 24 mEq/L (23-29); Chloride 103 mEq/L (98-107); Glucose 324 mg/dL (70-105); Osmolality,Calculated 294 (280-300); Potassium 4.6 mEq/L (3.5-5.1); Sodium 135 mEq/L (136-145); eGFR For African Americans > 60 (> 60); eGFR For Non-African Americans > 60 (> 60)
[2017-10-31] MEDS: MethylPREDNISolone 40 MG/ML VIAL IVP SCH (06:03)
[2017-10-31 07:09] VITALS: BP 153/79
[2017-10-31] MEDS: Aspirin Enteric Coated 81 MG Tablet PO SCH (08:59)
[2017-10-31] MEDS: Pregabalin 75 MG CAPSULE PO SCH (08:59)
[2017-10-31] MEDS: Insulin DETEMIR 100 UNIT/ML X5UNITS SQ SCH (09:00)
[2017-10-31] MEDS: Insulin LISPRO 300 UNITS/3 ML VIAL SQ SCH (09:01)
--- NOTE | 2017-10-31 09:13 | Discharge Summary ---
<Bennett Ochoa - Last Filed: 10/31/17 09:21> Date of Encounter: 10/31/17 Time of Encounter: 09:07 - Discharge Diagnosis (1) Bronchitis Priority: Primary Status: Acute (2) Sepsis Priority: Secondary Status: Acute Qualifiers: Sepsis type: sepsis due to unspecified organism Qualified Code(s): A41.9 - Sepsis, unspecified organism (3) Acute hypoxemic respiratory failure Priority: Secondary Status: Acute (4) Diarrhea Priority: Secondary Status: Resolved Qualifiers: Diarrhea type: unspecified type Qualified Code(s): R19.7 - Diarrhea, unspecified (5) Weakness Priority: Secondary Status: Acute (6) Diabetes Priority: Secondary Status: Chronic Qualifiers: Diabetes mellitus type: type 2 Diabetes mellitus complication status: with unspecified complications 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 operator insulin use status Qualified Code(s): E11.8 - Type 2 diabetes mellitus with unspecified complications (7) HTN (hypertension) Priority: Secondary Status: Chronic Qualifiers: Hypertension type: essential hypertension Qualified Code(s): I10 - Essential (primary) hypertension (8) HLD (hyperlipidemia) Priority: Secondary Status: Chronic Qualifiers: Hyperlipidemia type: pure hypercholesterolemia Qualified Code(s): E78.00 - Pure hypercholesterolemia, unspecified; E78.0 - Pure hypercholesterolemia (9) COPD (chronic obstructive pulmonary disease) Priority: Secondary Status: Suspected Qualifiers: Qualified Code(s): J44.9 - Chronic obstructive pulmonary disease, unspecified - Discharge Medications Prescriptions: predniSONE [PredniSONE] 10 mg PO DAILY #34 tablet Home Medications: Aspirin 81 mg PO DAILY 11/01/16 [History] Furosemide 20 mg PO DAILY 11/01/16 [History] Glimepiride 4 mg PO DAILY 11/01/16 [History] Metformin 1,000 mg PO BID 11/01/16 [History] Naproxen 500 mg PO BID 11/01/16 [History] Potassium 20 meq PO DAILY 11/01/16 [History] Tylenol 650 BID 11/01/16 [History] Atorvastatin [Lipitor] 40 mg PO HS 10/29/17 [History] Losartan [Cozaar] 25 mg PO DAILY 10/29/17 [History] Metoprolol [Lopressor] 25 mg PO BID 10/29/17 [History] Omeprazole [PriLOSEC] 40 mg PO DAILY 10/29/17 [History] Pregabalin [Lyrica] 150 mg PO BID 10/29/17 [History] predniSONE [PredniSONE] 10 mg PO DAILY #34 tablet 10/31/17 [Rx] Allergies/Adverse Reactions: 3 Allergy/AdvReac Type Severity Reaction Status Date / Time No Known Allergies Allergy Verified 10/28/17 09:47 Date of admission: 10/28/17 20:04 Primary care physician: Chelsie Birmingham CNP Consults: 10/30/17 09:36 Consult to Occupational Therapy [CONS] Routine Comment: Evaluate, develop and implement POC Reason for Consult: weakness, may need home health/rehab upon discharge Consult to Physical Therapy [CONS] Routine Comment: Evaluate, develop and implement POC Reason for Consult: weakness, may need home health/rehab upon discharge Discharging clinician: Bennett Ochoa Anticipated date of discharge: 10/31/17 - Patient Status Disposition: Home, Self-Care Condition: Good Functional capacity at discharge: independent ambulation Overall status at discharge: patient is progressing back to baseline - Discharge Instructions Instructions: Acute Respiratory Distress Syndrome (DC), Acute Bronchitis (DC) Follow Up With: Chelsie Birmingham CNP [Primary Care Provider] - 11/06/17 9:00 am Forms: Work/School Release Additional Instructions: Please follow with her primary care physician as scheduled Take her steroid taper according to directions - Diet and Activity Activity: increase activity as tolerated Diet: diabetic diet Hospital course: Ms. Small is a 62 year old female who presented with shortness of breath of one- week. She was diagnosed with bronchitis and did meet sepsis criteria with white count of 3 and was tachycardic. Patient stated she had bronchitis one year ago and had similar symptoms upon presentation. She has never been diagnosed with COPD and never smoked but states she did grow around smokers. Chest x-ray was negative but her d-dimer was elevated at 600 and a follow-up CTA was done and revealed no abnormalities. She did require 2 L of oxygen to maintain saturations above 90% and will be qualified for oxygen. She was also started on IV steroids and Zithromax and had improvement of her symptoms breathing. She will be going home on a steroid taper and will not require any more antibiotics. She did have some weakness upon presentation, but PTOT did not identify further needs at home. - Time Spent with Patient Total time spent providing and/or coordinating discharge services: Greater than 30 minutes - Constitutional Vitals: Temp Pulse Resp BP Pulse Ox 97.8 F 56 16 153/79 99 10/31/17 07:00 10/31/17 07:00 10/31/17 07:00 10/31/17 07:00 10/31/17 07:00 General appearance: Present: cooperative, morbidly obese, answers questions appropriately - Head Head exam: Present: atraumatic, normocephalic - Eye Eye exam: Present: PERRL, conjuntiva pink, sclera anicteric - Neck Neck exam general surgery: Present: supple, trachea midline. Absent: lymphadenopathy - Respiratory Respiratory exam: Present: wheezes. Absent: accessory muscle use, rales, rhonchi - Cardiovascular Cardiovascular exam: Present: RRR, +S1, +S2. Absent: diastolic murmur, gallop, rubs, systolic murmur - GI/Abdominal GI/Abdominal exam: Present: normal bowel sounds, soft, no peritoneal signs. Absent: distended, tenderness - Extremities Exam Extremities exam: Present: warm, radial pulses palpable and symmetrical. Absent : calf tenderness, cyanotic, pedal edema - Neurological Exam Neurological exam: Present: alert, no focal deficits. Absent: facial droop, speech deficit - Skin Skin exam: Present: dry, intact <Garcia Knapp H - Last Filed: 10/31/17 14:31> Date of Encounter: 10/31/17 Date of admission: 10/28/17 20:04 Primary care physician: Chelsie Birmingham CNP Consults: 10/30/17 09:36 Consult to Occupational Therapy [CONS] Routine Comment: Evaluate, develop and implement POC Reason for Consult: weakness, may need home health/rehab upon discharge Consult to Physical Therapy [CONS] Routine Comment: Evaluate, develop and implement POC Reason for Consult: weakness, may need home health/rehab upon discharge Hospital course: Ms. Small is a 62 year old female - Time Spent with Patient Total time spent providing and/or coordinating discharge services: - Constitutional Vitals: Temp Pulse Resp BP Pulse Ox 97.8 F 56 16 153/79 97 10/31/17 07:00 10/31/17 07:00 10/31/17 10:45 10/31/17 07:00 02/02/18 10:45 - Attending Attestation Acute hypoxic respiratory failure likely secondary to acute COPD exacerbation( never diagnosed) due to sepsis from possible acute bacterial bronchitis Time spent on this discharge 40 minutes I examined this patient and my medical decision-making was reviewed with the Resident Physician. I agree with the documented findings, disposition and treatment plan as described except to the extent set forth below.
--- NOTE | 2017-11-04 12:58 | Event Note ---
Date of Encounter: 11/04/17 Time of Encounter: 12:57 Called in Levaquin 750mg PO X1 tab daily for 5 days. Patient was notified and agrees to pick it up.
== END 2017-10-31 12:03 | disposition home or self-care (01) | DRG 871 ==
LOC: 3ANU 11:38 → EMEROO 11:38 → 3ANU 18:06
PROVIDERS: ADMIT Nurse Practitioner Family; ATTEND Internal Medicine

== ENCOUNTER 2019-12-17 11:25 | Observation (INO) ==
[2019-12-17] MEDS ORDERED: Ipratropium/Albuterol Neb 3 ML IH ONE (11:37)
[2019-12-17] MEDS ORDERED: predniSONE 20 MG TABLET PO ONE (11:39)
[2019-12-17] MEDS ORDERED: Ipratropium/Albuterol Neb 3 ML ONE (11:48)
[2019-12-17 12:08] LABS: Basophils # 0.1 K/mcL (0.0-0.2); Basophils % 0.5 %; Eosinophils # 0.1 K/mcL (0.0-0.6); Eosinophils % 1.3 %; Hematocrit 37.9 % (35.3-44.9); Hemoglobin 12.1 g/dL (11.5-15.4); Immature Granulocytes % 1.9 % (0-4); Lymphocytes # 2.6 K/mcL (0.6-4.6); Lymphocytes % 26.2 %; Mean Corpuscular HGB Conc 31.9 g/dL (31.6-35.5); Mean Corpuscular Volume 84.6 fL (83.0-100.0); Mean Platelet Volume 10.7 fL (9.4-12.4); Monocytes # 0.7 K/mcL (0.0-1.3); Monocytes % 6.5 %; Neutrophils # 6.3 K/mcL (1.6-8.9); Platelet Count 335 K/mcL (140-400); Red Blood Count 4.48 M/mcL (3.82-4.97); Red Cell Distribution Width 14.7 % (11.5-14.5); Segmented Neutrophils % 63.6 %; White Blood Count 9.9 K/mcL (4.3-11.1)
[2019-12-17 12:30] LABS: BUN/Creatinine Ratio 30 (6-26); Blood Urea Nitrogen 24 mg/dL (8-23); Calcium 9.3 mg/dL (8.6-10.3); Carbon Dioxide 22 mEq/L (23-29); Chloride 104 mEq/L (98-107); Glucose 169 mg/dL (70-105); Osmolality,Calculated 294 (280-300); Potassium 3.6 mEq/L (3.5-5.1); Sodium 138 mEq/L (136-145); Troponin I < 0.03 ng/mL (< 0.04); eGFR For African Americans > 60 (> 60); eGFR For Non-African Americans > 60 (> 60)
[2019-12-17] MEDS ORDERED: cefTRIAXone 2,000 MG in Water for inj. (sterile) 20 ML IVP ONE (12:45)
[2019-12-17] MEDS ORDERED: Azithromycin 500 MG in 0.9 % Sodium Chloride 250 ML IVPB ONE (12:45)
[2019-12-17] MEDS ORDERED: 0.9 % Sodium Chloride 1,000 ML IVC SCH (13:00)
[2019-12-17] MEDS ORDERED: 0.9 % Sodium Chloride 1,000 ML IVC STA (13:05)
[2019-12-17] MEDS ORDERED: Naloxone 0.4 MG/ML INJ IVP PRN (13:34)
[2019-12-17] MEDS ORDERED: GuaiFENesin Liq 200 MG/10 ML UDC PO PRN (13:37)
[2019-12-17] MEDS ORDERED: D5% in Water 1,000 ML IVC PRN (13:38)
[2019-12-17] MEDS ORDERED: Dextrose Gel 15 GM/37.5 ML TUBE PO PRN ×2 (13:38)
[2019-12-17] MEDS ORDERED: *HR* Dextrose 50 % in Water (Syg) 50 ML SYRINGE IVP PRN (13:38)
[2019-12-17] MEDS: Ipratropium/Albuterol Neb 3 ML IH SCH ×2 (15:39→19:50)
[2019-12-17] MEDS: MethylPREDNISolone 40 MG/ML VIAL IVP SCH ×2 (18:26→23:55)
[2019-12-17] MEDS: Ringers Solution, Lactated 1,000 ML IVC SCH ×2 (18:26→23:57)
[2019-12-17] MEDS: Insulin LISPRO 300 UNITS/3 ML VIAL SQ SCH ×2 (18:27→21:09)
[2019-12-17] MEDS: *HR* Heparin 5,000 UNIT/ML VIAL SQ SCH (18:30)
[2019-12-17 18:51] LABS: ABG Base Excess -4 mEq/L (-2 to 3); ABG HCO3 21 mEq/L (21-27); ABG Oxygen Saturation 97 % (95-98); ABG PCO2 37 mmHg (35-45); ABG PH 7.37 pH Units (7.32-7.45); ABG PO2 93 mmHg (85-104); ABG TCO2 22 mEq/L (20-26)
[2019-12-17] MEDS: Valsartan 80 MG TABLET PO SCH (22:03)
[2019-12-17] MEDS: Pregabalin 75 MG CAPSULE PO SCH (23:56)
[2019-12-18] MEDS: Ipratropium/Albuterol Neb 3 ML IH SCH ×7 (00:29→23:12)
[2019-12-18 01:07] LABS: Basophils % 0.2 %; Hemoglobin 10.9 g/dL (11.5-15.4); Immature Granulocytes % 1.9 % (0-4); Lymphocytes # 1.2 K/mcL (0.6-4.6); Lymphocytes % 9.7 %; Mean Corpuscular HGB Conc 32.1 g/dL (31.6-35.5); Mean Corpuscular Hemoglobin 27.7 pg (28.0-33.3); Mean Corpuscular Volume 86.3 fL (83.0-100.0); Mean Platelet Volume 11.1 fL (9.4-12.4); Monocytes # 0.3 K/mcL (0.0-1.3); Monocytes % 2.4 %; Neutrophils # 10.6 K/mcL (1.6-8.9); Platelet Count 310 K/mcL (140-400); Red Blood Count 3.94 M/mcL (3.82-4.97); Red Cell Distribution Width 14.8 % (11.5-14.5); Segmented Neutrophils % 85.8 %; White Blood Count 12.3 K/mcL (4.3-11.1)
[2019-12-18 01:18] LABS: Blood Urea Nitrogen 19 mg/dL (8-23); Calcium 8.8 mg/dL (8.6-10.3); Carbon Dioxide 21 mEq/L (23-29); Chloride 103 mEq/L (98-107); Glucose 277 mg/dL (70-105); Magnesium 1.2 mg/dL (1.6-2.6); Osmolality,Calculated 290 (280-300); Phosphorous 3.4 mg/dL (2.7-4.5); Potassium 4.2 mEq/L (3.5-5.1); Sodium 134 mEq/L (136-145)
[2019-12-18 01:29] LABS: BUN/Creatinine Ratio 25 (6-26); eGFR For African Americans > 60 (> 60); eGFR For Non-African Americans > 60 (> 60)
[2019-12-18] MEDS: *HR* Heparin 5,000 UNIT/ML VIAL SQ SCH ×2 (05:33→17:43)
[2019-12-18] MEDS: Valsartan 80 MG TABLET PO SCH (09:40)
[2019-12-18] MEDS: MethylPREDNISolone 40 MG/ML VIAL IVP SCH ×3 (09:40→23:25)
[2019-12-18] MEDS: Pregabalin 75 MG CAPSULE PO SCH ×2 (09:41→20:06)
[2019-12-18] MEDS: levoFLOXacin 750 MG/150 ML 750 MG/150 ML BAG IVPB SCH (09:42)
[2019-12-18] MEDS: Insulin LISPRO 300 UNITS/3 ML VIAL SQ SCH ×4 (09:44→20:08)
[2019-12-18] MEDS ORDERED: Furosemide 20 MG TABLET PO PRN (11:14)
[2019-12-18] MEDS: Ringers Solution, Lactated 1,000 ML IVC SCH ×2 (13:15→23:24)
[2019-12-18] MEDS ORDERED: NON-FORMULARY MEDICATION 1 EACH EACH (Pregabalin [Lyrica] 150 MG) PO SCH (21:00)
[2019-12-18] MEDS ORDERED: Insulin DETEMIR 100 UNIT/ML X5UNITS SQ SCH (21:00)
[2019-12-19 02:14] LABS: Hematocrit 35.5 % (35.3-44.9); Hemoglobin 11.4 g/dL (11.5-15.4); Mean Corpuscular HGB Conc 32.1 g/dL (31.6-35.5); Mean Corpuscular Hemoglobin 27.3 pg (28.0-33.3); Mean Corpuscular Volume 84.9 fL (83.0-100.0); Mean Platelet Volume 11.6 fL (9.4-12.4); Platelet Count 311 K/mcL (140-400); Red Blood Count 4.18 M/mcL (3.82-4.97); Red Cell Distribution Width 15.2 % (11.5-14.5); White Blood Count 12.3 K/mcL (4.3-11.1)
[2019-12-19 02:22] LABS: BUN/Creatinine Ratio 26 (6-26); Blood Urea Nitrogen 21 mg/dL (8-23); Calcium 9.7 mg/dL (8.6-10.3); Carbon Dioxide 21 mEq/L (23-29); Chloride 102 mEq/L (98-107); Glucose 367 mg/dL (70-105); Magnesium 1.8 mg/dL (1.6-2.6); Osmolality,Calculated 294 (280-300); Potassium 4.5 mEq/L (3.5-5.1); Sodium 133 mEq/L (136-145); eGFR For African Americans > 60 (> 60); eGFR For Non-African Americans > 60 (> 60)
[2019-12-19] MEDS: Ipratropium/Albuterol Neb 3 ML IH SCH ×2 (03:43→07:27)
[2019-12-19] MEDS ORDERED: Acetaminophen 325 MG TABLET PO PRN (04:47)
[2019-12-19] MEDS: *HR* Heparin 5,000 UNIT/ML VIAL SQ SCH (05:35)
[2019-12-19 07:21] VITALS: BP 161/73
[2019-12-19] MEDS ORDERED: Aspirin Enteric Coated 81 MG Tablet PO SCH (09:00)
[2019-12-19] MEDS ORDERED: Isosorbide MONOnitrate (24 HR) 30 MG TAB.ER.24H PO SCH (09:00)
[2019-12-19] MEDS: MethylPREDNISolone 40 MG/ML VIAL IVP SCH (09:04)
[2019-12-19] MEDS: Pregabalin 75 MG CAPSULE PO SCH (09:05)
[2019-12-19] MEDS: levoFLOXacin 750 MG/150 ML 750 MG/150 ML BAG IVPB SCH (09:05)
[2019-12-19] MEDS: Insulin LISPRO 300 UNITS/3 ML VIAL SQ SCH (09:05)
[2019-12-19] MEDS: Valsartan 80 MG TABLET PO SCH (09:15)
== END 2019-12-19 11:33 | disposition home or self-care (01) ==
LOC: 3BNU 11:25 → EMEROOARM 11:25 → 3BNU 14:44
PROVIDERS: ADMIT Internal Medicine; ATTEND Internal Medicine